=== PATIENT | male | born 1980 | race Two or more races ===

== ENCOUNTER 2018-11-13 01:49 | Emergency (ER) | payer BC, OTHER ==
[~2018-11-13] VITALS: Ht 177.8 cm; Wt 90.3 kg
[2018-11-13] MEDS ORDERED: ATEN25TA PO (01:55)
--- NOTE | 2018-11-13 02:00 | NUR ---
Dr. Jara at bedside for MSE.
[2018-11-13] MEDS ORDERED: NITROGLYCERIN OINT 1 GM PACKET TP ONE ×2 (02:15→02:25)
[2018-11-13] MEDS ORDERED: NITROGLYCERIN 0.4 MG/TAB BOTTLE SL ONE ×2 (02:15→02:25)
[2018-11-13] MEDS ORDERED: ASPIRIN 81 MG TAB.CHEW PO ONE (02:15)
[2018-11-13] MEDS ORDERED: GUAIFENESIN/CODEINE 5 ML LIQUID UDC PO ONE (02:15)
[2018-11-13] MEDS ORDERED: ASPIRIN 81 MG TAB.CHEW ONE (02:24)
[2018-11-13] MEDS ORDERED: GUAIFENESIN/CODEINE 5 ML LIQUID UDC ONE (02:24)
--- NOTE | 2018-11-13 02:25 | NUR ---
Xray at bedside.
[2018-11-13] MEDS ORDERED: ACETAMINOPHEN ES 500 MG TABLET PO ONE (02:30)
[2018-11-13] MEDS ORDERED: ACETAMINOPHEN ES 500 MG TABLET ONE (02:33)
[2018-11-13 02:36] LABS: BASOPHILS # (AUTO) 0.1 K/uL (0.0-8.0); BASOPHILS % (AUTO) 0.6 % (0.0-2.0); EOSINOPHILS # (AUTO) 0.3 K/uL (0.0-0.7); EOSINOPHILS % (AUTO) 2.6 % (0.0-7.0); HEMATOCRIT 47.3 % (36.7-47.1); HEMOGLOBIN 15.8 g/dL (12.5-16.3); LYMPHOCYTES # (AUTO) 2.6 K/uL (20.0-40.0); MEAN CORPUSCULAR HEMOGLOBIN 28.4 uug (23.8-33.4); MEAN CORPUSCULAR HGB CONC 33 g/dL (32.5-36.3); MONOCYTES # (AUTO) 1.2 K/uL (2.0-10.0); MONOCYTES % (AUTO) 10.4 % (0.0-11.0); NEUTROPHILS # (AUTO) 7.7 K/uL (1.8-8.9); NEUTROPHILS % (AUTO) 64.4 % (38.5-71.5); PLATELET COUNT (AUTO) 322 K/uL (152-348); RED BLOOD CELL COUNT(AUTO) 5.57 MIL/uL (4.06-5.63); WHITE BLOOD COUNT (AUTO) 11.9 K/uL (3.6-10.2)
[2018-11-13 02:43] LABS: POTASSIUM 3.3 mmol/L (3.5-5.1)
[2018-11-13 02:48] LABS: *AMPHETAMINE, URINE NEGATIVE (NEGATIVE); *BARBITURATE, URINE NEGATIVE (NEGATIVE); *CANNABINOID, URINE NEGATIVE (NEGATIVE); *COCCAINE, URINE NEGATIVE (NEGATIVE); *OPIATE, URINE NEGATIVE (NEGATIVE); *PHENCYCLIDINE SCREEN,URINE NEGATIVE (NEGATIVE)
[2018-11-13 02:48] LABS: BILIRUBIN,DIRECT 0.1 mg/dL (0.0-0.2); BILIRUBIN,TOTAL 0.3 mg/dL (0.2-1.0); TOTAL PROTEIN, SERUM 7.8 g/dL (6.4-8.2)
--- NOTE | 2018-11-13 03:00 | NUR ---
Patient in bed NAD, VSS
[2018-11-13] MEDS ORDERED: POTASSIUM CHLORIDE 20 MEQ TAB.PRT.SR PO ONE (03:15)
[2018-11-13] MEDS ORDERED: methylPREDNISolone SOD SUCC 125 MG/2 ML VIAL IV ONE (03:15)
[2018-11-13] MEDS ORDERED: methylPREDNISolone SOD SUCC 125 MG/2 ML VIAL ONE (03:33)
[2018-11-13] MEDS ORDERED: POTASSIUM CHLORIDE 20 MEQ TAB.PRT.SR ONE (03:34)
--- NOTE | 2018-11-13 06:17 | NUR ---
Patient discharged to home in stable conditon. Written and verbal after care instructions given. Patient verbalizes understanding of instructions. Pt ambulated out of ER with steady gait, no acute signs of distress, VSS, all belongings taken, IV site discontinued.
[2018-11-13 06:20] VITALS: BP 118/61
== END 2018-11-13 06:20 | disposition home or self-care (01) ==
LOC: ER 01:54
DX: R07.9 Chest pain, unspecified (principal); R05 Cough; J02.9 Acute pharyngitis, unspecified; R09.89 Other specified symptoms and signs involving the circulatory and respiratory systems; Z79.899 Other long term (current) drug therapy
CPT/HCPCS: 36415; 71045; 80048; 80076; 80307; 84484 ×2; 85025; 85379; 87040 ×2; 87400; 93005; 96374; 99284; J2930; 70030-TC; A4663; A9150; J7030

== ENCOUNTER 2021-11-29 02:21 | Emergency (ER) | payer BC, OTHER ==
[~2021-11-29] VITALS: Ht 172.7 cm; Wt 90.7 kg
[~2021-11-29 02:21] MED LIST: ATEN25TA PO
--- NOTE | 2021-11-29 02:30 | NUR ---
Pt brought straight back to room ED5A by boilermaker fitter [employer], pt placed on gurney in pos of comfort--supine, hob at 35 degrees. Pt connected to monitor, initial vs and EKG obtained. VSS, slightly hypertensive at 139/68, 98%RA, 18rpm, 96bpm. Pt denies any pain but state that he had a brief period of chest pain that brought him in but has since resolved. He states that he "feels weird" like hes having palpitations or missed beats. On the bedside monitor he is showing SR with freq PVCs. Pt states that he takes BP med Atenolol and that he took half of one because his heart was racing and is SBP was in the 140s. Pt aaox4, good color and appearance, walked into ED via waiting room. PERRLA, lungs ctab, good distal pulses x4 ext, strong and equal gear shaper set up operator strength bilat. Bed dropped, rails up , all needs met, call light with pt. pt told to wait for EDMD for eval. Pt waiting patiently for EDMD exam.
--- NOTE | 2021-11-29 02:45 | NUR ---
EDMD at bedside for eval, EKG complete. Pt NSR, normal EKG. VSS. Pt in no acute distress.
--- NOTE | 2021-11-29 02:55 | NUR ---
20g angio inserted into Lt AC without difficulty, pt has excellent vains. states his mother has genetic hypertension and that is why he has hypertension at such a young age and he is being treated for it and managing it closely. IV patent and flushing well. awaiting MD orders.
--- NOTE | 2021-11-29 03:00 | NUR ---
Pt in sustained trigemeny for approx 10 min then phased into bigemeny for approx another 5 to 10 min. After which his heart started phasing in and out of trigemeny and bigemeny with frequent dropped and missed beats approx 4 sec long at longest interval of dropped beat. appears to be dropping 2 beats at a time then starting up again, which he feels as a "weird sensation". Pt advised to get a referral to a implementation lead and possible be put on an antidysrhythmic that might help to keep his heart more reg and not skip so many beats. Pt concured.
[2021-11-29 03:08] LABS: HEMATOCRIT 47.8 % (36.7-47.1); MEAN CORPUSCULAR HEMOGLOBIN 28.9 uug (23.8-33.4); MEAN CORPUSCULAR VOLUME 83.6 fL (73.0-96.2); PLATELET COUNT (AUTO) 342 K/uL (152-348)
[2021-11-29 03:14] LABS: CREATININE 1.1 mg/dL (0.6-1.3)
--- NOTE | 2021-11-29 03:35 | NUR ---
Pt is no longer in bi or trygemeny. Pt is SR with occ to freq PVCs along with dropped beats and occational to freq pauses.
[2021-11-29] MEDS ORDERED: POTASSIUM CHLORIDE 20 MEQ TAB.PRT.SR ONE (03:36)
[2021-11-29 03:38] LABS: BILIRUBIN,DIRECT 0.1 mg/dL (0.0-0.2); BILIRUBIN,TOTAL 0.4 mg/dL (0.2-1.0); MAGNESIUM 2.4 mg/dL (1.8-2.4); TOTAL PROTEIN, SERUM 8.4 g/dL (6.4-8.2)
[2021-11-29] MEDS ORDERED: POTASSIUM BICARBONATE/CIT AC 25 MEQ TABLET.EFF ONE (03:42)
[2021-11-29] MEDS ORDERED: POTASSIUM BICARBONATE/CIT AC 25 MEQ TABLET.EFF PO ONE (03:45)
--- NOTE | 2021-11-29 03:45 | NUR ---
50 meq of KCL given as [place] in 2 cups of water, pt consumed without difficulty. EDMD at bedside for discussion and dispo, pt told that he will be going home once dc paperwork is complete. EDMD discussed aftercare at length with pt, pt confirmed understanding of EDMD teaching and recommendation.
--- NOTE | 2021-11-29 04:00 | NUR ---
Pt given dc instructions and acknowledged understanding of aftercare. All questions answered. Last vss 134/90, 98%, 16 rpm, 85 bpm, 0/10 pain. EKG and labs copied for pt's records and to show to PMD. IV removed from Lt ac without difficulty. site dressed with 4x4 and tape. Pt signed out and walked out of dept with steady gait. No s/sxof distress present.
[2021-11-29 05:33] VITALS: BP 134/90
== END 2021-11-29 04:00 | disposition home or self-care (01) ==
LOC: ER 02:27
DX: R00.2 Palpitations (principal); E87.6 Hypokalemia; I10 Essential (primary) hypertension; R73.9 Hyperglycemia, unspecified
CPT/HCPCS: 36415; 83735; 85025; 93005; A4663

== ENCOUNTER 2022-07-16 16:40 | Emergency (ER) | payer BC, OTHER ==
[~2022-07-16] VITALS: Ht 172.7 cm; Wt 93.0 kg
[2022-07-16 17:53] LABS: MEAN CORPUSCULAR HEMOGLOBIN 29.4 uug (23.8-33.4); MEAN CORPUSCULAR VOLUME 86.5 fL (73.0-96.2); PLATELET COUNT (AUTO) 344 K/uL (152-348)
[2022-07-16 18:04] LABS: CARBON DIOXIDE 32 mmol/L (21-32); CHLORIDE 100 mmol/L (98-107); CREATININE 1.3 mg/dL (0.6-1.3); GLUCOSE 159 mg/dL (74-106); POTASSIUM 3.6 mmol/L (3.5-5.1); UREA NITROGEN, BLOOD 15 mg/dL (7-18)
--- NOTE | 2022-07-16 18:22 | NUR ---
Patient is awake, alert, oriented x3. C/O headache
[2022-07-16] MEDS ORDERED: ACETAMINOPHEN ES 500 MG TABLET ONE (19:08)
[2022-07-16] MEDS ORDERED: PROCHLORPERAZINE MALEATE 5 MG TABLET ONE ×2 (19:08→19:09)
[2022-07-16] MEDS ORDERED: MOME17SP BNOSTRILS (19:18)
[2022-07-16] MEDS ORDERED: KETOROLAC TROMETHAMINE 15 MG INJ IM ONE (19:30)
[2022-07-16] MEDS ORDERED: KETOROLAC TROMETHAMINE 15 MG INJ ONE (19:38)
[2022-07-16 20:08] VITALS: BP 130/85
--- NOTE | 2022-07-16 20:08 | NUR ---
Patient discharged to home in stable condition. Written and verbal after care instructions given. Patient verbalizes understanding of instructions. Stressed follow up or return to ER for worsening s/s.
== END 2022-07-16 20:09 | disposition home or self-care (01) ==
LOC: ER 16:40
DX: R51.9 Headache, unspecified (principal); R11.0 Nausea; R00.2 Palpitations; R09.81 Nasal congestion
CPT/HCPCS: 99285; 70450; 80048; 85025; 84484; 36415; 93005; 96372; J1885; J8499; A4663; A9150